=== PATIENT | female | born 1950 | race Caucasian/White ===

== ENCOUNTER 2018-04-01 14:56 | Inpatient (IN) | payer MEDICAID ==
[2018-04-01 16:16] LABS: ADD MAN DIFF? NO
[2018-04-01 16:17] LABS: WHITE BLOOD COUNT 5.1 10^3/ul (4.8-10.8)
[2018-04-01 16:17] LABS: BASOPHILS % 0.2 % (0.0-2.0); EOSINOPHILS % 0.6 % (0.0-7.0); HEMOGLOBIN 11.9 g/dl (12.0-16.0); LYMPHOCYTES # 0.7 10^3/ul (0.8-2.9); LYMPHOCYTES % 14.2 % (15.0-51.0); MEAN CORPUSCULAR HEMOGLOBIN 29.5 pg (29.0-33.0); MEAN CORPUSCULAR HGB CONC 33.1 g/dl (32.0-37.0); MEAN CORPUSCULAR VOLUME 89.3 fl (82.0-101.0); MONOCYTE # 0.4 10^3/ul (0.3-0.9); MONOCYTES % 7.3 % (0.0-11.0); NEUTROPHILS % 77.7 % (39.0-77.0); PLATELET COUNT 103 10^3/UL (140-415); RED BLOOD COUNT 4.03 10^6/ul (4.20-5.40); RED CELL DISTRIBUTION WIDTH 13.9 % (11.5-14.5)
[2018-04-01 16:36] LABS: ALANINE AMINOTRANSFERASE 16 IU/L (13-69); ALBUMIN 4.2 g/dl (3.3-4.9); ALBUMIN/GLOBULIN RATIO 1.07; ALKALINE PHOSPHATASE 111 IU/L (42-121); ANION GAP 11 (5-13); ASPARTATE AMINO TRANSFERASE 42 IU/L (15-46); BILIRUBIN,INDIRECT 0.2 mg/dl (0-1.1); BILIRUBIN,TOTAL 0.2 mg/dl (0.2-1.3); BLOOD UREA NITROGEN 10 mg/dl (7-20); CALCIUM 8.9 mg/dl (8.4-10.2); CARBON DIOXIDE 27 mmol/L (21-31); CHLORIDE 103 mmol/L (97-110); CREATININE 0.71 mg/dl (0.44-1.00); Estimated GFR > 60 mL/min (>60); GLUCOSE 99 mg/dl (70-220); POTASSIUM 3.8 mmol/L (3.5-5.1); SODIUM 141 mmol/L (135-144); TOTAL PROTEIN 8.1 g/dl (6.1-8.1)
[2018-04-01 16:47] LABS: TROPONIN-I 0.023 ng/ml (0.000-0.120)
[2018-04-01 17:24] LABS: INR 0.93; PARTIAL THROMBOPLASTIN TIME 26.9 Sec (23.0-35.0); PROTIME 12.5 Sec (11.9-14.9)
[2018-04-01] MEDS ORDERED: HYDROCODONE/APAP (5/325) TAB PO (19:30)
[2018-04-01] MEDS ORDERED: DOCUSATE SODIUM 100 MG CAP PO (19:30)
[2018-04-01] MEDS ORDERED: LORAZEPAM 2 MG INJ IV (19:30)
[2018-04-01] MEDS ORDERED: NACL 0.9% 3 ML SYG IV (19:30)
[2018-04-01] MEDS ORDERED: MAGNESIUM HYDROXIDE 30ML CUP PO (19:30)
[2018-04-01] MEDS ORDERED: morphine 2 MG INJ IV (19:30)
[2018-04-01] MEDS ORDERED: ALBUTEROL/IPRATROPIUM (NEB) 3 ML AMP HHN (19:30)
[2018-04-01] MEDS ORDERED: NITROGLYCERIN (SL) 0.4 MG TAB SL (19:30)
[2018-04-01] MEDS ORDERED: ONDANSETRON 4 MG INJ IV (20:00)
[2018-04-01] MEDS ORDERED: ACETAMINOPHEN 325 MG TAB PO (20:00)
[2018-04-01 20:21] LABS: PROTIME 12.2 Sec (11.9-14.9)
[2018-04-01 20:22] LABS: PARTIAL THROMBOPLASTIN TIME 26.7 Sec (23.0-35.0)
[2018-04-01 20:24] LABS: FREE T4 (FREE THYROXINE) 1.62 ng/dl (0.78-2.44)
[2018-04-01] MEDS: ACETAMINOPHEN 325 MG TAB PO (21:55)
[2018-04-01] MEDS: hydrALAzine 20 MG INJ IV (21:56)
[2018-04-01] MEDS: SOD CHLORIDE 0.45% 1,000 ML IV (21:56)
[2018-04-01] MEDS: HEPARIN 5,000 UNIT/1 ML VIAL SC (22:13)
[2018-04-01] MEDS: ONDANSETRON 4 MG INJ IV (23:35)
[2018-04-02 06:10] LABS: ADD MAN DIFF? NO
[2018-04-02 06:26] LABS: ABNORMAL IP MESSAGE 1; BASOPHILS % 0.3 % (0.0-2.0); EOSINOPHILS % 0.5 % (0.0-7.0); HEMATOCRIT 33.1 % (37.0-47.0); HEMOGLOBIN 10.9 g/dl (12.0-16.0); LYMPHOCYTES # 0.6 10^3/ul (0.8-2.9); LYMPHOCYTES % 15.6 % (15.0-51.0); MEAN CORPUSCULAR HEMOGLOBIN 29.5 pg (29.0-33.0); MEAN CORPUSCULAR HGB CONC 32.9 g/dl (32.0-37.0); MEAN CORPUSCULAR VOLUME 89.7 fl (82.0-101.0); MEAN PLATELET VOLUME 13.2 fl (7.4-10.4); MONOCYTE # 0.3 10^3/ul (0.3-0.9); NEUTROPHIL # 2.8 10^3/ul (1.6-7.5); NEUTROPHILS % 76.3 % (39.0-77.0); PLATELET COUNT 108 10^3/UL (140-415); RED BLOOD COUNT 3.69 10^6/ul (4.20-5.40); RED CELL DISTRIBUTION WIDTH 14.3 % (11.5-14.5)
[2018-04-02 06:26] LABS: WHITE BLOOD COUNT 3.7 10^3/ul (4.8-10.8)
[2018-04-02 06:35] LABS: ANION GAP 10 (5-13); BLOOD UREA NITROGEN 12 mg/dl (7-20); CALCIUM 8.7 mg/dl (8.4-10.2); CARBON DIOXIDE 27 mmol/L (21-31); CHLORIDE 105 mmol/L (97-110); CREATININE 0.65 mg/dl (0.44-1.00); Estimated GFR > 60 mL/min (>60); GLUCOSE 97 mg/dl (70-220); MAGNESIUM 2.2 mg/dl (1.7-2.5); PHOSPHORUS 4.6 mg/dl (2.5-4.9); POTASSIUM 3.9 mmol/L (3.5-5.1); SODIUM 142 mmol/L (135-144)
[2018-04-02 06:45] LABS: POSITIVE DIFF @See below
[2018-04-02 06:48] LABS: CHOLESTEROL 170 mg/dl (100-200)
[2018-04-02 06:48] LABS: HDL CHOLESTEROL 34 mg/dl (35-98); LDL CHOLESTEROL,CALCULATED 109 mg/dl; TRIGLYCERIDES 134 mg/dl (0-149)
[2018-04-02 07:00] LABS: HEMOGLOBIN A1C 5.2 % (0-5.9)
[2018-04-02] MEDS: AMLODIPINE 10 MG TAB PO (08:32)
[2018-04-02] MEDS: HEPARIN 5,000 UNIT/1 ML VIAL SC ×2 (08:38→20:43)
[2018-04-02 11:33] LABS: CREATINE KINASE 88 IU/L (23-200)
[2018-04-02 11:45] LABS: CK INDEX 3.2; CK-MB 2.85 ng/ml (0.0-2.4)
[2018-04-02 11:49] LABS: TROPONIN-I 0.182 ng/ml (0.000-0.120)
[2018-04-02] MEDS: ASPIRIN 81 MG TAB PO (12:05)
[2018-04-02 12:54] LABS: AMPHETAMINE/METHAMPHETAMINE Negative (NEGATIVE); BARBITURATES Negative (NEGATIVE); BENZODIAZEPINES Negative (NEGATIVE); CANNABINOIDS Negative (NEGATIVE); COCAINE Negative (NEGATIVE); OPIATES Negative (NEGATIVE)
[2018-04-02 15:12] LABS: CREATINE KINASE 88 IU/L (23-200)
[2018-04-02 15:24] LABS: CK-MB 2.66 ng/ml (0.0-2.4)
[2018-04-02 15:35] LABS: TROPONIN-I 0.203 ng/ml (0.000-0.120)
[2018-04-02] MEDS: hydrALAzine 20 MG INJ IV (20:39)
[2018-04-02] MEDS: ACETAMINOPHEN 325 MG TAB PO (20:39)
[2018-04-02 22:25] LABS: CREATINE KINASE 86 IU/L (23-200)
[2018-04-02 22:37] LABS: CK INDEX 2.8; CK-MB 2.38 ng/ml (0.0-2.4)
[2018-04-03 07:05] LABS: ADD MAN DIFF? NO
[2018-04-03 07:11] LABS: WHITE BLOOD COUNT 3.6 10^3/ul (4.8-10.8)
[2018-04-03 07:11] LABS: ABNORMAL IP MESSAGE 1; BASOPHILS % 0.3 % (0.0-2.0); EOSINOPHILS % 1.1 % (0.0-7.0); HEMATOCRIT 34.8 % (37.0-47.0); HEMOGLOBIN 11.2 g/dl (12.0-16.0); LYMPHOCYTES # 1.2 10^3/ul (0.8-2.9); LYMPHOCYTES % 31.7 % (15.0-51.0); MEAN CORPUSCULAR HEMOGLOBIN 29.1 pg (29.0-33.0); MEAN CORPUSCULAR HGB CONC 32.2 g/dl (32.0-37.0); MEAN CORPUSCULAR VOLUME 90.4 fl (82.0-101.0); MEAN PLATELET VOLUME 12.8 fl (7.4-10.4); MONOCYTE # 0.4 10^3/ul (0.3-0.9); MONOCYTES % 10.2 % (0.0-11.0); NEUTROPHIL # 2.1 10^3/ul (1.6-7.5); NEUTROPHILS % 56.4 % (39.0-77.0); PLATELET COUNT 115 10^3/UL (140-415); RED BLOOD COUNT 3.85 10^6/ul (4.20-5.40); RED CELL DISTRIBUTION WIDTH 14.5 % (11.5-14.5)
[2018-04-03 07:13] LABS: POSITIVE DIFF @See below
[2018-04-03] MEDS: AMLODIPINE 10 MG TAB PO (07:43)
[2018-04-03] MEDS: ASPIRIN 81 MG TAB PO (07:43)
[2018-04-03 07:44] LABS: ANION GAP 9 (5-13); BLOOD UREA NITROGEN 14 mg/dl (7-20); CALCIUM 8.7 mg/dl (8.4-10.2); CARBON DIOXIDE 26 mmol/L (21-31); CHLORIDE 107 mmol/L (97-110); CREATININE 0.69 mg/dl (0.44-1.00); Estimated GFR > 60 mL/min (>60); GLUCOSE 86 mg/dl (70-220); POTASSIUM 4.5 mmol/L (3.5-5.1); SODIUM 142 mmol/L (135-144)
[2018-04-03] MEDS: HEPARIN 5,000 UNIT/1 ML VIAL SC (07:49)
[2018-04-03] MEDS: ACETAMINOPHEN 325 MG TAB PO (07:50)
[2018-04-03] MEDS: LISINOPRIL 20 MG TAB PO (11:26)
[2018-04-03] MEDS: HYDROCHLOROTHIAZIDE 12.5 MG CAP PO (11:26)
== END 2018-04-03 14:32 | disposition home or self-care (01) | DRG 305 ==
LOC: E/R 14:56 → TEL 19:37
DX: I16.1 Hypertensive emergency (principal); I10 Essential (primary) hypertension; Z86.73 Personal history of transient ischemic attack (TIA), and cerebral infarction without residual deficits; D64.9 Anemia, unspecified; R01.1 Cardiac murmur, unspecified; Z91.14 Patient's other noncompliance with medication regimen
CPT/HCPCS: 36415; 70450; 70551; 71045; 80048; 80053; 80061; 80307; 82550; 82553; 83036; 83735; 84100; 84439; 84443; 84484; 85025; 85610; 85730; 90686; 92610; 93005; 93306; 93880; 97161; 97166; 99285-25